=== PATIENT | female | born 1990 | race African-American/Black ===

== ENCOUNTER 2016-07-09 12:05 | Emergency (ER) | payer SELFPAY ==
[~2016-07-09] VITALS: Ht 160 cm; Wt 68.0 kg
[~2016-07-09 12:05] MED LIST: ALBUTEROL SULF8.5 GM INH; ALPRAZOLAM0.25 MG ORAL; AMLODIPINE BESYL5 MG GT; ASPIRIN EC81 MG GT; ATORVASTATIN CA20 MG GT; AUGMENTIN 875-1 EAC1 ORAL; AZITHROMYCIN250 MG ORAL; BENZONATATE100 MG ORAL; FIORICET1 EA ORAL; IBUPROFEN600 MG ORAL; LEVOCETIRIZINE D5 MG GT; MIRAPEX0.25 MG GT; MONTELUKAST SOD10 MG GT; NAMENDA10 MG GT; NKM; NORCO 5-325 TA1 EACH ORAL; OMEPRAZOLE20 M2 ORAL; PROMETHAZINE-C118 M1 ORAL; SYNTHROID50 MCG GT; VICODIN 5-5001 EACH PO; VITAMIN B-625 MG GT
[2016-07-09] MEDS ORDERED: Mylanta II UD 30ml ORAL ONE (12:30)
[2016-07-09] MEDS ORDERED: Dicyclomine HCl 10mg/5ml oral soln ORAL ONE (12:30)
[2016-07-09] MEDS ORDERED: Lidocaine 2% Visc 15ml soln ORAL ONE (12:30)
--- NOTE | 2016-07-09 12:32 | Emergency Room Report ---
History of Present Illness General Chief Complaint: Abdominal Pain Source: Patient Present Illness HPI 26-year-old female presents to emergency Department complaining of 10 out of 10 in severity generalized abdominal pain with intermittent qualities in addition to 5 episodes of vomiting this a.m.. Patient denies constipation or diarrhea. She denies fevers, chills recent travel or ill contacts. Denies states she is due for her period this coming week. She denies recent unprotected intercourse. Patient does not localize pain to one specific area the abdomen. Patient states she has a history of anemia denies blood in the vomit or stool denies black tarry stools. She denies hematuria, dysuria, frequency or urgency. Denies CP, Palpitations, LOC, AMS, dizziness, Changes in Vision, Sensation, paresthesias, or a sudden severe headache. Allergies: Coded Allergies: No Known Allergies (Unverified , 07/24/13) Patient History Past Medical History: see triage record Past Surgical History: none Pertinent Family History: none Last Menstrual Period: last month Now: No Immunizations: UTD Reviewed Nursing Documentation: PMH: Agreed, PSxH: Agreed Nursing Documentation-PMH Past Medical History: No History, Except For Hx Neurological Problems: Yes - migraines Review of Systems All Other Systems: negative except mentioned in HPI Physical Exam Vital Signs Date Time Temp Pulse Resp B/P Pulse Ox O2 Delivery O2 Flow Rate FiO2 07/09/16 12:24 99.0 20 89/54 98 Room Air Sp02 EP Interpretation: reviewed, normal General Appearance: alert, GCS 15, non-toxic, mild distress - secondary to abdominal pain Head: normocephalic, atraumatic Eyes: bilateral eye PERRL, bilateral eye normal inspection ENT: hearing grossly normal, normal pharynx, no angioedema, normal voice Neck: full range of motion, supple/symm/no masses Respiratory: chest non-tender, lungs clear, normal breath sounds, speaking full sentences Cardiovascular #1: regular rate, rhythm, no edema Cardiovascular #2: 2+ radial (R), 2+ radial (L) Gastrointestinal: normal bowel sounds - hyperactive bowel sounds in all four quadrants, non tender, soft, no mass, no organomegaly, no bruit, non-distended, no guarding, no hernia, no pulsatile mass, no rebound, other - Generalized TTP to deep palpation in all 4 quadrants, Negative Stilwell signs, Negative MacBurney 's sign, Negative Rosvigns Sign, Negative Psoas, No Peritoneal signs. Rectal: deferred Genitourinary: normal inspection, no CVA tenderness Musculoskeletal: back normal, gait/station normal, normal range of motion, non- tender, no calf tenderness Neurologic: alert, oriented x3, responsive, motor strength/tone normal, sensory intact, speech normal Psychiatric: judgement/insight normal, memory normal, mood/affect normal, no suicidal/homicidal ideation Skin: normal color, no rash, warm/dry, other - sking is dry, lips are chapped indicating mild dehydration Lymphatic: no adenopathy Medical Decision Making PA Attestation Dr. Lainez is my supervising Physician whom patient management has been discussed with. Diagnostic Impression: Primary Impression: Abdominal pain in female Additional Impressions: Gastritis Qualified Codes: K29.00 - Acute gastritis without bleeding Mild dehydration ER Course Pt. presents to the ED c/o generalized intermittent abdominal pain with nausea , vomiting since this a.m. patient reports 4 episodes of vomiting denies blood in the vomit. Ddx considered but are not limited to Diverticulitis, acute appy, diarrhea,UC, PUD, GE, pancreatitis, gallstone, ovarian torsion, ectopic , PID tubo-ovarian abscess. Vital signs: are WNL, pt. is afebrile Pt is in mild distress due to pain. ORDERS: -CBC, CMP, LIPASE: all WNL no evidence of acute infeciton, electrolyte imbalance, or severe dehydration -UA: Unremarkable -URINE HCG: Negative ED INTERVENTIONS: - 4mg Zofran - GI cocktail - 1000 NS Bolus -500mg Tylenol- for GAINES - Reevaluation the patient is in no acute distress able to tolerate fluids orally, and abdominal pain has subsided. -D/w showed results of her laboratory exams and recommended that patient followup with her primary care doctor. Discussed symptoms that would indicate need for prompt return to the ER. - She verbalizes her understanding and agreement with the proposed treatment plan DISCHARGE: At this time pt. is stable for d/c to home. Will provide printed patient care instructions, and any necessary prescriptions. Care plan and follow up instructions have been discussed with the patient prior to discharge. Labs Test 07/09/16 12:30 White Blood Count 8.8 K/UL (4.8-10.8) Red Blood Count 5.38 M/UL (4.20-5.40) Hemoglobin 12.2 G/DL (12.0-16.0) Hematocrit 40.6 % (37.0-47.0) Mean Corpuscular Volume 75 FL (80-99) Mean Corpuscular Hemoglobin 22.7 PG (27.0-31.0) Mean Corpuscular Hemoglobin Concent 30.1 G/DL (32.0-36.0) Red Cell Distribution Width 13.1 % (11.6-14.8) Platelet Count 249 K/UL (150-450) Mean Platelet Volume 9.3 FL (6.5-10.1) Neutrophils (%) (Auto) 55.6 % (45.0-75.0) Lymphocytes (%) (Auto) 33.9 % (20.0-45.0) Monocytes (%) (Auto) 6.9 % (1.0-10.0) Eosinophils (%) (Auto) 2.0 % (0.0-3.0) Basophils (%) (Auto) 1.6 % (0.0-2.0) Urine Color Pale yellow Urine Appearance Clear Urine pH 8 (4.5-8.0) Urine Specific [place] 1.010 (1.005-1.035) Urine Protein Negative (NEGATIVE) Urine Glucose (UA) Negative (NEGATIVE) Urine Ketones Negative (NEGATIVE) Urine Occult Blood Negative (NEGATIVE) Urine Nitrite Negative (NEGATIVE) Urine Bilirubin Negative (NEGATIVE) Urine Urobilinogen Normal MG/DL (0.0-1.0) Urine Leukocyte Esterase 1+ (NEGATIVE) Urine RBC 0-2 /HPF (0 - 2) Urine WBC 5-10 /HPF (0 - 2) Urine Squamous Epithelial Cells Few /LPF (NONE/OCC) Urine Bacteria Few /HPF (NONE) Urine HCG, Qualitative Negative Sodium Level 141 mEQ/L (135-145) Potassium Level 4.0 mEQ/L (3.4-4.9) Chloride Level 100 mEQ/L (98-107) Carbon Dioxide Level 28 mEQ/L (20-30) Anion Gap 13 (5-15) Blood Urea Nitrogen 8 mg/dL (7-23) Creatinine 0.8 mg/dL (0.5-0.9) Estimat Glomerular Filtration Rate > 60 mL/min (>60) Glucose Level 96 mg/dL (74-106) Calcium Level 9.3 mg/dL (8.6-10.2) Total Bilirubin 0.8 mg/dL (0.0-1.2) Aspartate Amino Transf (AST/SGOT) 17 U/L (5-40) Alanine Aminotransferase (ALT/SGPT) 13 U/L (3-33) Alkaline Phosphatase 55 U/L (35-104) Total Protein 7.5 g/dL (6.6-8.7) Albumin 4.6 g/dL (3.5-5.2) Globulin 2.9 g/dL Albumin/Globulin Ratio 1.5 (1.0-2.7) Lipase 17 U/L (< 60) Last Vital Signs Date Time Temp Pulse Resp B/P Pulse Ox O2 Delivery O2 Flow Rate FiO2 07/09/16 12:24 99.0 20 89/54 98 Room Air Disposition: HOME, SELF-CARE Condition: Stable Scripts Ranitidine Hcl* (ZANTAC*) 150 Mg Tablet 150 MG ORAL TWICE A DAY for 7 Days, #15 TAB Prov: Taylor Elam 07/09/16 Dicyclomine Hcl* (BENTYL*) 10 Mg Capsule 10 MG ORAL FOUR TIMES A DAY for 3 Days, CAP Prov: Taylor Elam 07/09/16 Ondansetron Odt* (ZOFRAN ODT*) 4 Mg Tab.rapdis 4 MG ORAL Q6H Y for Nausea & Vomiting, #30 TAB Prov: Taylor Elam 07/09/16 Patient Instructions: Abdominal Pain, Adult, Viral Gastroenteritis, Adult Additional Instructions: Take medications as directed. Follow up with PCP in 3-5 days Return sooner to ED if new symptoms occur, or current symptoms become worse. Taylor Elam Jul 09, 2016 12:32
[2016-07-09 13:03] LABS: APPEARANCE,URINE CLEAR; BASOPHILS % (AUTO) 1.6 % (0.0-2.0); KETONES,URINE NEGATIVE (NEGATIVE); LEUKOCYTE ESTERASE ,URINE 1+ (NEGATIVE); LYMPHOCYTES % (AUTO) 33.9 % (20.0-45.0); MEAN CORPUSCULAR HEMOGLOBIN 22.7 PG (27.0-31.0); MEAN CORPUSCULAR HGB CONC 30.1 G/DL (32.0-36.0); MEAN CORPUSCULAR VOLUME 75 FL (80-99); MEAN PLATELET VOLUME 9.3 FL (6.5-10.1); MONOCYTES % (AUTO) 6.9 % (1.0-10.0); NEUTROPHILS % (AUTO) 55.6 % (45.0-75.0); NITRITE,URINE NEGATIVE (NEGATIVE); PH,URINE 8 (4.5-8.0); PLATELET COUNT 249 K/UL (150-450); PROTEIN,URINE NEGATIVE (NEGATIVE); RED BLOOD COUNT 5.38 M/UL (4.20-5.40); RED CELL DISTRIBUTION WIDTH 13.1 % (11.6-14.8); UROBILINOGEN,URINE NORMAL MG/DL (0.0-1.0); WHITE BLOOD COUNT 8.8 K/UL (4.8-10.8)
[2016-07-09 13:18] LABS: ALANINE AMINOTRANSFERASE 13 U/L (3-33); ALBUMIN/GLOBULIN RATIO 1.5 (1.0-2.7); ANION GAP 13 (5-15); ASPARTATE AMINO TRANSFERASE 17 U/L (5-40); CALCIUM 9.3 mg/dL (8.6-10.2); CARBON DIOXIDE 28 mEQ/L (20-30); CHLORIDE 100 mEQ/L (98-107); CREATININE 0.8 mg/dL (0.5-0.9); GLOMERULAR FILTRATION RATE > 60 mL/min (>60); HEMOLYSIS 6; LIPASE 17 U/L (< 60); SODIUM 141 mEQ/L (135-145); TOTAL PROTEIN 7.5 g/dL (6.6-8.7)
[2016-07-09 13:24] LABS: BACTERIA,URINE FEW /HPF; RBC,URINE 0-2 /HPF (0 - 2); SQUAMOUS EPITHELIAL CELL,UR FEW /LPF (NONE/OCC)
[2016-07-09] MEDS ORDERED: Ketorolac 30mg Inj IV ONE (14:00)
[2016-07-09] MEDS ORDERED: BENTYL10 MG ORAL (14:10)
[2016-07-09] MEDS ORDERED: ZANTAC150 MG ORAL (14:10)
[2016-07-09] MEDS ORDERED: ZOFRAN ODT4 MG ORAL (14:10)
[2016-07-09 14:14] VITALS: BP 93/55
[2016-07-09] MEDS ORDERED: Acetaminophen 500mg (ES) tab ORAL ONE (14:15)
== END 2016-07-09 14:13 | disposition home or self-care (01) ==
LOC: EMR 12:40
DX: K29.00 Acute gastritis without bleeding (principal); E86.0 Dehydration
CPT/HCPCS: 36415; 80053; 81003; 81025; 83690; 85025; 96374; 96375; 99284; J1885; J2405

== ENCOUNTER 2016-07-21 22:37 | Emergency (ER) | payer SELFPAY ==
[~2016-07-21] VITALS: Ht 160 cm; Wt 52.2 kg
[~2016-07-21 22:37] MED LIST changes: +BENTYL10 MG ORAL; +ZANTAC150 MG ORAL; +ZOFRAN ODT4 MG ORAL
[2016-07-21 22:55] VITALS: BP 128/62
[2016-07-22] MEDS ORDERED: ACETAMINOPHEN-1 EAC1 ORAL (01:20)
[2016-07-22 01:37] VITALS: BP 128/62
[2016-07-22 01:38] VITALS: BP 124/61
[2016-07-22 01:39] VITALS: BP 124/61
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
== END 2016-07-22 01:40 | disposition home or self-care (01) ==
LOC: EMR 23:15
DX: M26.629 Arthralgia of temporomandibular joint, unspecified side (principal); Z86.59 Personal history of other mental and behavioral disorders; R51 Headache; H92.02 Otalgia, left ear
CPT/HCPCS: 70486; 80300; 81025; 99284

== ENCOUNTER 2016-08-29 21:06 | Emergency (ER) | payer SELFPAY ==
[~2016-08-29] VITALS: Ht 160 cm; Wt 49.9 kg
[~2016-08-29 21:06] MED LIST changes: +ACETAMINOPHEN-1 EAC1 ORAL
[2016-08-29 21:31] VITALS: BP 108/69
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
[2016-08-29] MEDS ORDERED: Norco 5mg/325mg tab ORAL ONE (22:00)
[2016-08-29] MEDS ORDERED: IBUPROFEN600 MG ORAL (22:59)
[2016-08-29 23:05] VITALS: BP 108/69
--- NOTE | 2016-08-30 10:10 | Diagnostic Imaging Report ---
Indication: Pain Comparison: None Findings: 4 views of the right thoracic region obtained. There is no fracture identified involving any of the ribs. There is no pneumothorax or evidence of contusion or effusion. Impression: Negative right unilateral rib series
--- NOTE | 2016-08-30 10:11 | Diagnostic Imaging Report ---
Indications: hip pain Findings: Two views of the left hip were obtained. No acute fracture is demonstrated. Alignment of the hip is within normal limits. Soft tissues are unremarkable. Impression: Negative examination of the hip.
== END 2016-08-29 23:06 | disposition home or self-care (01) ==
LOC: EMR 21:55
DX: S20.211A Contusion of right front wall of thorax, initial encounter (principal); S76.011A Strain of muscle, fascia and tendon of right hip, initial encounter; F20.9 Schizophrenia, unspecified; F31.9 Bipolar disorder, unspecified; Y09 Assault by unspecified means; Y92.9 Unspecified place or not applicable; Y99.8 Other external cause status
CPT/HCPCS: 73502; 99284

== ENCOUNTER 2016-11-17 04:02 | Emergency (ER) | payer SELFPAY ==
[~2016-11-17] VITALS: Ht 160 cm; Wt 52.2 kg
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
[2016-11-17] MEDS: Tylenol #3 tab (300mg/30mg) ORAL ONE ×2 (04:27→04:32)
[2016-11-17] MEDS ORDERED: BACITRACIN-POL1 EACH TOPIC (04:43)
[2016-11-17] MEDS ORDERED: NORCO 5-325 TA1 EACH ORAL (04:43)
[2016-11-17] MEDS ORDERED: Bacitracin Oint UD TOPIC ONE (04:45)
[2016-11-17] MEDS ORDERED: Oxycodone/Acetaminophen 5-325 ORAL ONE (04:45)
[2016-11-17 04:55] VITALS: BP 96/65
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
== END 2016-11-17 04:55 | disposition home or self-care (01) ==
LOC: EMR 04:15
DX: S90.212A Contusion of left great toe with damage to nail, initial encounter (principal); W22.8XXA Striking against or struck by other objects, initial encounter; Y93.9 Activity, unspecified; Y99.9 Unspecified external cause status; F31.9 Bipolar disorder, unspecified; F20.9 Schizophrenia, unspecified

== ENCOUNTER 2017-05-03 22:35 | Emergency (ER) | payer SELFPAY ==
[~2017-05-03] VITALS: Ht 157.5 cm; Wt 53.5 kg
[~2017-05-03 22:35] MED LIST changes: +BACITRACIN-POL1 EACH TOPIC
[2017-05-03 22:50] VITALS: BP 111/72
[2017-05-03] MEDS ORDERED: PERCOCET 5-3251 EACH ORAL (23:07)
[2017-05-03 23:21] VITALS: BP 111/72
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
== END 2017-05-03 23:21 | disposition home or self-care (01) ==
LOC: EMR 22:56
DX: S00.83XA Contusion of other part of head, initial encounter (principal); Y08.89XA Assault by other specified means, initial encounter; Y92.89 Other specified places as the place of occurrence of the external cause; F31.9 Bipolar disorder, unspecified; F20.9 Schizophrenia, unspecified
CPT/HCPCS: 99283

== ENCOUNTER 2017-10-25 11:39 | Emergency (ER) | payer MEDICAID ==
[~2017-10-25] VITALS: Ht 157.5 cm; Wt 52.2 kg
[~2017-10-25 11:39] MED LIST changes: +PERCOCET 5-3251 EACH ORAL
[2017-10-25] MEDS ORDERED: NKM (12:31)
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
[2017-10-25] MEDS: Morphine Sulfate 4mg/ml Inj IM ONE ×2 (13:08→13:09)
[2017-10-25] MEDS ORDERED: Lidocaine 2% Visc 15ml soln ORAL ONE (13:45)
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
[2017-10-25] MEDS ORDERED: Morphine Sulfate 4mg/ml Inj IM ONE (15:00)
[2017-10-25] MEDS ORDERED: AFRIN15 ML NASAL (15:05)
[2017-10-25] MEDS ORDERED: NORCO 5-325 TA1 EACH ORAL (15:05)
[2017-10-25] MEDS ORDERED: SALINE MIST45 ML NS (15:05)
[2017-10-25] MEDS ORDERED: IBUPROFEN400 MG ORAL (15:05)
[2017-10-25 15:14] VITALS: BP 110/68
[2017-10-25 15:15] VITALS: BP 110/68
== END 2017-10-25 15:15 | disposition home or self-care (01) ==
LOC: EMR 12:37
DX: S00.83XA Contusion of other part of head, initial encounter (principal); Y04.8XXA Assault by other bodily force, initial encounter; Y92.9 Unspecified place or not applicable; R04.0 Epistaxis; M54.6 Pain in thoracic spine; R07.81 Pleurodynia; R10.9 Unspecified abdominal pain; R51 Headache; M25.552 Pain in left hip; J45.909 Unspecified asthma, uncomplicated
CPT/HCPCS: 70450; 70486; 71250; 74176; 81025; 96372; 99284; J2270

== ENCOUNTER 2018-01-28 23:15 | Emergency (ER) | payer MEDICAID ==
[~2018-01-28] VITALS: Ht 157.5 cm; Wt 53.5 kg
[~2018-01-28 23:15] MED LIST changes: +AFRIN15 ML NASAL; +IBUPROFEN400 MG ORAL; +SALINE MIST45 ML NS
[2018-01-28] MEDS ORDERED: UNOBMED (23:26)
[2018-01-28 23:34] VITALS: BP 106/70
--- NOTE | 2018-01-28 23:46 | Emergency Room Report ---
History of Present Illness General Chief Complaint: Pain Source: Patient Present Illness HPI Patient presents with reports of having chest tightness since this morning Patient reports that she has asthma and anxiety Denies any ameliorating or exacerbating factors denies any pleurisy Denies any fevers or chills denies any cough Denies any vomiting or diarrhea Allergies: Coded Allergies: No Known Allergies (Unverified , 07/24/13) Patient History Past Medical History: see triage record Pertinent Family History: none Last Menstrual Period: 12/21/17 Now: No : 2 Para: 1 Reviewed Nursing Documentation: PMH: Agreed; PSxH: Agreed Nursing Documentation-PMH Hx Asthma: Yes History Of Psychiatric Problem: Yes - Bipolar and schizopherenia Review of Systems All Other Systems: negative except mentioned in HPI Physical Exam Vital Signs Date Time Temp Pulse Resp B/P (MAP) Pulse Ox O2 Delivery O2 Flow Rate FiO2 01/28/18 23:22 98.3 79 14 106/70 96 Room Air 98.2 Sp02 EP Interpretation: reviewed, normal General Appearance: well appearing, no apparent distress Head: normocephalic, atraumatic Eyes: bilateral eye PERRL, bilateral eye EOMI ENT: hearing grossly normal, normal pharynx, TMs + canals normal, uvula midline Neck: full range of motion, supple, no meningismus, no bony tend Respiratory: lungs clear, normal breath sounds, no rhonchi, no respiratory distress, no retraction, no accessory muscle use Cardiovascular #1: normal peripheral pulses, regular rate, rhythm, no edema, no gallop, no JVD, no murmur Gastrointestinal: normal bowel sounds, non tender, soft, no mass, no organomegaly, non-distended, no guarding, no hernia, no pulsatile mass, no rebound Genitourinary: no CVA tenderness Musculoskeletal: normal inspection Neurologic: oriented x3, responsive, mend worker III-XII nml as tested, motor strength/ tone normal, sensory intact Psychiatric: mood/affect normal Skin: normal color, no rash, warm/dry, palpation normal Lymphatic: normal inspection, no adenopathy Medical Decision Making Diagnostic Impression: Primary Impression: Chest pain ER Course Patient is a fairly complex patient with multiple differential to consideration including but not limited to cardiac cardiopulmonary and vascular emergencies Patient's lung sounds are clear At this time patient shows continued positive findings of marijuana I did discuss with her given her asthma, that marijuana can worsen all of her symptoms Patient also does not require any emergency breathing treatment as her lung sounds are clear and I feel albuterol would worsen some of her symptoms Patient observed remains comfortable and stable And is appropriate for initial conservative outpatient trial EKG Diagnostic Results Rate: normal Rhythm: NSR ST Segments: no acute changes Rhythm Strip Diag. Results EP Interpretation: yes Rate: 60 Rhythm: NSR, no PVC's, no ectopy Last Vital Signs Date Time Temp Pulse Resp B/P (MAP) Pulse Ox O2 Delivery O2 Flow Rate FiO2 01/28/18 23:34 98.2 79 14 106/70 96 Room Air 98.2 Status: improved Disposition: HOME, SELF-CARE Condition: Improved Additional Instructions: Patient is provided with the discharge instructions notified to follow up with primary doctor in the next 2-3 days otherwise return to the er with any worsening symptoms. Please note that this report is being documented using DRAGON technology. This can lead to erroneous entry secondary to incorrect interpretation by the dictating instrument. Godfrey Lainez DO Jan 28, 2018 23:46
[2018-01-29 00:15] VITALS: BP 106/70
--- NOTE | 2018-01-30 15:42 | Cardiology Report ---
APPROVED REPORT EKG Measurement Heart [id number] Sinus bradycardia Otherwise normal ECG
== END 2018-01-29 00:18 | disposition home or self-care (01) ==
LOC: EMR 23:40
DX: R07.89 Other chest pain (principal); J45.909 Unspecified asthma, uncomplicated; F20.9 Schizophrenia, unspecified; F31.9 Bipolar disorder, unspecified
CPT/HCPCS: 80307; 81025; 93005; 99283

== ENCOUNTER 2020-06-05 00:06 | Emergency (ER) | payer SELFPAY ==
[~2020-06-05] VITALS: Ht 165.1 cm; Wt 54.4 kg
[~2020-06-05 00:06] MED LIST changes: +UNOBMED
[2020-06-05] MEDS ORDERED: HYDROcodone/Acetamin 5/325 tab ORAL ONE (00:30)
[2020-06-05] MEDS ORDERED: NORCO 5-325 TA1 EAC1 ORAL (00:50)
[2020-06-05] MEDS ORDERED: IBUPROFEN400 M1 PO (00:50)
--- NOTE | 2020-06-05 00:50 | Diagnostic Imaging Report ---
EXAM: XR Left Ankle Complete, 3 or More Views CLINICAL HISTORY: PAIN TECHNIQUE: Frontal, lateral and oblique views of the left ankle. COMPARISON: No relevant prior studies available. FINDINGS: Bones/joints: Unremarkable. No acute fracture. No dislocation. Soft tissues: Mild lateral ankle soft tissue swelling. IMPRESSION: 1. Mild lateral ankle soft tissue swelling. 2. Otherwise unremarkable study.
[2020-06-05 01:25] VITALS: BP 120/65
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
== END 2020-06-05 01:25 | disposition home or self-care (01) ==
LOC: EMR 00:22
DX: S93.402A Sprain of unspecified ligament of left ankle, initial encounter (principal); J45.909 Unspecified asthma, uncomplicated; X58.XXXA Exposure to other specified factors, initial encounter; Y93.9 Activity, unspecified; Y92.9 Unspecified place or not applicable
CPT/HCPCS: 29515; 99283